=== PATIENT | female | born 1995 | race Two or more races ===

== ENCOUNTER 2020-11-18 21:32 | Emergency (ER) | payer OTHER ==
[~2020-11-18] VITALS: Ht 170.2 cm; Wt 60.3 kg
== END 2020-11-19 02:37 | disposition home or self-care (01) ==
LOC: ER 21:32
DX: N99.821 Postprocedural hemorrhage of a genitourinary system organ or structure following other procedure (principal); N93.8 Other specified abnormal uterine and vaginal bleeding; Y84.8 Other medical procedures as the cause of abnormal reaction of the patient, or of later complication, without mention of misadventure at the time of the procedure